=== PATIENT | female | born 1995 | race African-American/Black ===

== ENCOUNTER 2016-12-19 12:58 | Emergency (ER) | payer OTHER ==
--- NOTE | 2016-12-19 13:59 | ERRECORD ---
[facility] EMERGENCY RECORD HPI COUGH (13:14 SHAN) CHIEF COMPLAINT: Patient presents for evaluation of cough, Patient presents for evaluation of and sore throat. HISTORIAN: History provided by patient, two days of cough with yellow green sputum, sore throat, worsening; denies any chance of being . LOCATION: No localizing symptoms. SEVERITY: Maximum severity of symptoms moderate, Currently symptoms are moderate. TIME COURSE: Gradual onset of symptoms, Symptoms are worsening. ROS CONSTITUTIONAL: Negative constitutional review of systems. (13:16 SHAN) EYES: Negative eye review of systems. (13:16 SHAN) ENT: Historian reports rhinorrhea, reports sore throat. (13:16 SHAN) CARDIOVASCULAR: Negative cardiovascular review of systems. (13:16 SHAN) RESPIRATORY: Historian reports cough. (13:16 SHAN) GI: Negative gastrointestinal review of systems. (13:16 SHAN) MUSCULOSKELETAL: Negative musculoskeletal review of systems. (13:18 SHAN) SKIN: Negative skin review of systems. (13:16 SHAN) NEUROLOGIC: Negative neurologic review of systems. (13:16 SHAN) ENDOCRINE: Negative endocrine review of systems. (13:16 SHAN) NOTES: All systems reviewed, negative except as described above. (13:16 SHAN) PAST MEDICAL HISTORY (13:04 MSPE) MEDICAL HISTORY: Flu vaccine up to date, Tetanus immunization up to date, Past medical history includes pulmonary disease, asthma. FEMALE SURGICAL HISTORY: Surgical history of section, Date of surgery 10-29-16. PSYCHIATRIC HISTORY: No previous psychiatric history. SOCIAL HISTORY: Patient drinks socially, rarely, Patient denies drug use, Patient has no smoking history. FAMILY HISTORY: No known family hisotry, Family history includes diabetes, maternal grandmother. KNOWN ALLERGIES No Known Drug Allergies CURRENT MEDICATIONS (13:03 MSPE) None VITAL SIGNS (13:01 MSPE) VITAL SIGNS: BP: 147/73, Pulse: 67, Resp: 18, Temp: 98.5 (Oral), Pain: 5, O2 sat: 96 on Room Air, Time: 12/19/2016 13:01. &a-1R&a+25V*p+0X*p2617D*c202B*c15G*c2P*p-0X&a-25V&a+1R Name: Beatriz Keith Joel : 1995 F21 MedRec: [id number] AcctNum: [id number] Prepared: ThuDec 19, 2016 13:55 by Interface Page 1 of 2 pMD [facility] EMERGENCY RECORD PHYSICAL EXAM CONSTITUTIONAL: Patient afebrile, Pulse normal, Blood pressure normal, Respiratory rate normal, Normal pulse oximetry, Patient appears non toxic, Patient appears pain free, Patient alert and oriented to person, place and time. (13:16 SHAN) HEAD: Head exam included findings of head atraumatic, normocephalic. (13:16 SHAN) EYES: Eye exam included findings of eyelids normal to inspection, Pupils equally round and reactive to light, Extraocular muscles intact. (13:16 SHAN) ENT: nasal congestion. (13:16 SHAN) NECK: Neck exam normal. (13:16 SHAN) RESPIRATORY CHEST: Mild ronchi. (13:16 SHAN) CARDIOVASCULAR: Cardiovascular exam included findings of heart rate regular rate and rhythm, Heart sounds normal. (13:18 SHAN) ABDOMEN FEMALE: Abdominal exam included findings of abdomen nontender, Bowel sounds normal. (13:16 SHAN) ABDOMEN MALE: Abdominal exam included findings of abdomen nontender, Bowel sounds normal. (13:18 SHAN) BACK: Back exam normal. (13:16 SHAN) UPPER EXTREMITY: Upper extremity exam included findings of inspection normal, Range of motion normal. (13:16 SHAN) NEURO: Neuro exam normal. (13:16 SHAN) SKIN: Skin exam normal. (13:16 SHAN) DOCTOR NOTES (13:49 SHAN) TEXT: strep and flu negative; green sputum. Discussed options and medication (cipro) concerns and will treat. Not and not breast feeding. DATA REVIEWED: Lab data reviewed. PROBLEM LIST No recorded problems DIAGNOSIS (13:51 SHAN) FINAL: PRIMARY: Acute bronchitis. PRESCRIPTION (13:51 SHAN) Cipro tablet: TABLET : 500 mg : ORAL : Quantity: 1 Unit: tab(s) Route: ORAL Schedule: 2 times a day (with meals) Dispense: 20 Unit: tab(s) May substitute. Refills: No Refills . NOTES: No Refills. DISPOSITION (13:51 SHAN) PATIENT: Disposition Type: Discharge, Disposition: *Discharge Home. Meza: VIGNESH=TREV Goldman, Roseann CONTRERAS=MD Tri, Ravi &a-1R&a+25V*p+0X*c3019Z*c202B*c15G*c2P*p-0X&a-25V&a+1R Name: Beatriz Keith Joel : 1995 F21 MedRec: [id number] AcctNum: [id number] Prepared: ThuDec 19, 2016 13:55 by Interface Page 2 of 2 pMD MTDD
--- NOTE | 2016-12-19 14:02 | ERRECORD ---
[facility] EMERGENCY RECORD HPI COUGH (13:14 SHAN) CHIEF COMPLAINT: Patient presents for evaluation of cough, Patient presents for evaluation of and sore throat. HISTORIAN: History provided by patient, two days of cough with yellow green sputum, sore throat, worsening; denies any chance of being . LOCATION: No localizing symptoms. SEVERITY: Maximum severity of symptoms moderate, Currently symptoms are moderate. TIME COURSE: Gradual onset of symptoms, Symptoms are worsening. ROS CONSTITUTIONAL: Negative constitutional review of systems. (13:16 SHAN) EYES: Negative eye review of systems. (13:16 SHAN) ENT: Historian reports rhinorrhea, reports sore throat. (13:16 SHAN) CARDIOVASCULAR: Negative cardiovascular review of systems. (13:16 SHAN) RESPIRATORY: Historian reports cough. (13:16 SHAN) GI: Negative gastrointestinal review of systems. (13:16 SHAN) MUSCULOSKELETAL: Negative musculoskeletal review of systems. (13:18 SHAN) SKIN: Negative skin review of systems. (13:16 SHAN) NEUROLOGIC: Negative neurologic review of systems. (13:16 SHAN) ENDOCRINE: Negative endocrine review of systems. (13:16 SHAN) NOTES: All systems reviewed, negative except as described above. (13:16 SHAN) PAST MEDICAL HISTORY (13:04 MSPE) MEDICAL HISTORY: Flu vaccine up to date, Tetanus immunization up to date, Past medical history includes pulmonary disease, asthma. FEMALE SURGICAL HISTORY: Surgical history of section, Date of surgery 10-29-16. PSYCHIATRIC HISTORY: No previous psychiatric history. SOCIAL HISTORY: Patient drinks socially, rarely, Patient denies drug use, Patient has no smoking history. FAMILY HISTORY: No known family hisotry, Family history includes diabetes, maternal grandmother. KNOWN ALLERGIES No Known Drug Allergies CURRENT MEDICATIONS (13:03 MSPE) None VITAL SIGNS (13:01 MSPE) VITAL SIGNS: BP: 147/73, Pulse: 67, Resp: 18, Temp: 98.5 (Oral), Pain: 5, O2 sat: 96 on Room Air, Time: 12/19/2016 13:01. &a-1R&a+25V*p+0X*k3580L*c202B*c15G*c2P*p-0X&a-25V&a+1R Name: Beatriz Keith Joel : 1995 F21 MedRec: [id number] AcctNum: [id number] Prepared: ThuDec 19, 2016 14:02 by Interface Page 1 of 3 pMD [facility] EMERGENCY RECORD PHYSICAL EXAM CONSTITUTIONAL: Patient afebrile, Pulse normal, Blood pressure normal, Respiratory rate normal, Normal pulse oximetry, Patient appears non toxic, Patient appears pain free, Patient alert and oriented to person, place and time. (13:16 SHAN) HEAD: Head exam included findings of head atraumatic, normocephalic. (13:16 SHAN) EYES: Eye exam included findings of eyelids normal to inspection, Pupils equally round and reactive to light, Extraocular muscles intact. (13:16 SHAN) ENT: nasal congestion. (13:16 SHAN) NECK: Neck exam normal. (13:16 SHAN) RESPIRATORY CHEST: Mild ronchi. (13:16 SHAN) CARDIOVASCULAR: Cardiovascular exam included findings of heart rate regular rate and rhythm, Heart sounds normal. (13:18 SHAN) ABDOMEN FEMALE: Abdominal exam included findings of abdomen nontender, Bowel sounds normal. (13:16 SHAN) ABDOMEN MALE: Abdominal exam included findings of abdomen nontender, Bowel sounds normal. (13:18 SHAN) BACK: Back exam normal. (13:16 SHAN) UPPER EXTREMITY: Upper extremity exam included findings of inspection normal, Range of motion normal. (13:16 SHAN) NEURO: Neuro exam normal. (13:16 SHAN) SKIN: Skin exam normal. (13:16 SHAN) DOCTOR NOTES (13:49 SHAN) TEXT: strep and flu negative; green sputum. Discussed options and medication (cipro) concerns and will treat. Not and not breast feeding. DATA REVIEWED: Lab data reviewed. PROBLEM LIST No recorded problems DIAGNOSIS (13:51 SHAN) FINAL: PRIMARY: Acute bronchitis. PRESCRIPTION (13:51 SHAN) Cipro tablet: TABLET : 500 mg : ORAL : Quantity: 1 Unit: tab(s) Route: ORAL Schedule: 2 times a day (with meals) Dispense: 20 Unit: tab(s) May substitute. Refills: No Refills . NOTES: No Refills. DISPOSITION PATIENT: Disposition Type: Discharge, Disposition: *Discharge Home. (13:51 SHAN) Patient left the department. (13:56 MCBE) Meza: &a-1R&a+25V*p+0X*w8364Z*c202B*c15G*c2P*p-0X&a-25V&a+1R Name: Beatriz Keith : 1995 F21 MedRec: [id number] AcctNum: [id number] Prepared: ThuDec 19, 2016 14:02 by Interface Page 2 of 3 pMD [facility] EMERGENCY RECORD MCBE=Yamilet Hankins=TREV Goldman, Roseann CONTRERAS=MD Tri, Ravi &a-1R&a+25V*p+0X*i1698D*c202B*c15G*c2P*p-0X&a-25V&a+1R Name: Beatriz Keith : 1995 F21 MedRec: [id number] AcctNum: [id number] Prepared: ThuDec 19, 2016 14:02 by Interface Page 3 of 3 pMD MTDD
--- NOTE | 2016-12-19 14:04 | PICIS ---
[facility] EMERGENCY RECORD TRIAGE (13:02 MSPE) TRIAGE NOTES: productive cough, nasal congestion, sore throat for past two days. (13:02 MSPE) PATIENT: NAME: Beatriz Keith, AGE: 21, GENDER: female, : Thu1995, TIME OF GREET: ThuDec 19, 2016 12:58, PREFERRED LANGUAGE: Tajik, ETHNICITY: Not or , ECODE BILLING MAP: [facility], SSN: [id number], Zip Code: [address], KG WEIGHT: 78.93, PHONE: , , , PERSON ID: [id number], PCP: Avery Taylor /Nicolette. (13:02 MSPE) COMPLAINT: THROAT PAIN. (13:02 MSPE) ADMISSION: URGENCY: 4 Non Urgent, ADMISSION SOURCE: Home, TRANSPORT: CAR, BED: TRIAGE. (13:02 MSPE) LMP: Last menstrual period: 11/28/2016. (13:04 MSPE) TREATMENTS IN PROGRESS: Treatments given Prehospital: none today. (13:04 MSPE) PROVIDERS: TRIAGE NURSE: Roseann Goldman RN. (13:02 MSPE) VITAL SIGNS: BP 147/73, Pulse 67, Resp 18, Temp 98.5, (Oral), Pain 5, O2 Sat 96, on Room Air, Time 12/19/2016 13:01. (13:01 MSPE) PREVIOUS VISIT ALLERGIES: No Known Drug Allergies. (13:02 MSPE) No Known Drug Allergies. (13:04 MSPE) KNOWN ALLERGIES No Known Drug Allergies CURRENT MEDICATIONS (13:03 MSPE) None VITAL SIGNS (13:01 MSPE) VITAL SIGNS: BP: 147/73, Pulse: 67, Resp: 18, Temp: 98.5 (Oral), Pain: 5, O2 sat: 96 on Room Air, Time: 12/19/2016 13:01. NURSING ASSESSMENT: ENT (13:05 MSPE) CONSTITUTIONAL: Patient arrives ambulatory, Gait steady, History obtained from patient, Patient appears comfortable, Patient cooperative, Patient alert, Oriented to person, place and time, Skin warm, Skin dry. PAIN: sore throat, Onset of pain 2 days ago. ENT: Uvula normal, Able to swallow, Speech normal. RESPIRATORY/CHEST: Breath sounds clear, Respiratory assessment findings include respiratory effort easy, Respirations regular, Associated with cough, productive of, green sputum, Notes: sts has been around nephew who has been ill with cold sx. NURSING PROCEDURE: DISCHARGE NOTE (13:57 MCBE) DISCHARGE: Patient discharged to home, ambulating without assistance, driving self, accompanied by other family member, Summary of Care printed/ provided, Discharge instructions given to patient, Simple or moderate discharge teaching performed, by YAMILET KARIMI, &a-1R&a+25V*p+0X*o7506X*c202B*c15G*c2P*p-0X&a-25V&a+1R Name: Beatriz Keith : 1995 F21 MedRec: [id number] AcctNum: [id number] Prepared: ThuDec 19, 2016 14:07 by Interface Page 1 of 4 pMD [facility] EMERGENCY RECORD EXPLAINED DISCHARGE INSTRUCTIONS. INSTRUCTED TO RETURN IF S/S WORSEN. INSTRUCTED TO COMPLETE ALL ANITBIOTICS. INFORMED PATIENT PRESCRIPTION CAN BE FILLED AT ANY PHARMACY, Prescriptions given and instructions on side effects given, Name of prescription(s) given: DAGO, Paulino person(s) verbalized understanding of discharge instructions and follow-up care, Patient treated and evaluated by physician. BELONGINGS: Belongings and valuables with patient upon arrival to the Emergency Department include:, Belongings and valuables with patient at time of discharge include:, jacket, pants, shirt, shoes, cellular phone, Notes: IN CARRIER WITH PINK BLANKET OVER THE FRONT. ALL BABY ITEMS WITH PATIENT WHEN DISCHARGED. ORDER DETAILS Order Name: Influenza A&B Ag Screen, Status: Active, Time: 13:14 12/19/2016, User: BEN, - Ordered for: MD Bartlett Stanley, - Entered by: MD Bartlett Stanley - Mike Dec 19, 2016 13:14, - Quantity: 1, Order Name: Strep Group A Screen, Status: Active, Time: 13:14 12/19/2016, User: BEN, - Ordered for: MD Bartlett Stanley, - Entered by: MD Bartlett Stanley - ThuDec 19, 2016 13:14, - Quantity: 1. HPI COUGH (13:14 SHAN) CHIEF COMPLAINT: Patient presents for evaluation of cough, Patient presents for evaluation of and sore throat. HISTORIAN: History provided by patient, two days of cough with yellow green sputum, sore throat, worsening; denies any chance of being . LOCATION: No localizing symptoms. SEVERITY: Maximum severity of symptoms moderate, Currently symptoms are moderate. TIME COURSE: Gradual onset of symptoms, Symptoms are worsening. ROS CONSTITUTIONAL: Negative constitutional review of systems. (13:16 SHAN) EYES: Negative eye review of systems. (13:16 SHAN) ENT: Historian reports rhinorrhea, reports sore throat. (13:16 SHAN) CARDIOVASCULAR: Negative cardiovascular review of systems. (13:16 SHAN) RESPIRATORY: Historian reports cough. (13:16 SHAN) GI: Negative gastrointestinal review of systems. (13:16 SHAN) MUSCULOSKELETAL: Negative musculoskeletal review of systems. (13:18 SHAN) SKIN: Negative skin review of systems. (13:16 SHAN) &a-1R&a+25V*p+0X*c2834R*c202B*c15G*c2P*p-0X&a-25V&a+1R Name: Beatriz Keith : 1995 F21 MedRec: [id number] AcctNum: [id number] Prepared: ThuDec 19, 2016 14:07 by Interface Page 2 of 4 pMD [facility] EMERGENCY RECORD NEUROLOGIC: Negative neurologic review of systems. (13:16 SHAN) ENDOCRINE: Negative endocrine review of systems. (13:16 SHAN) NOTES: All systems reviewed, negative except as described above. (13:16 SHAN) PAST MEDICAL HISTORY (13:04 MSPE) MEDICAL HISTORY: Flu vaccine up to date, Tetanus immunization up to date, Past medical history includes pulmonary disease, asthma. FEMALE SURGICAL HISTORY: Surgical history of section, Date of surgery 10-29-16. PSYCHIATRIC HISTORY: No previous psychiatric history. SOCIAL HISTORY: Patient drinks socially, rarely, Patient denies drug use, Patient has no smoking history. FAMILY HISTORY: No known family hisotry, Family history includes diabetes, maternal grandmother. PHYSICAL EXAM CONSTITUTIONAL: Patient afebrile, Pulse normal, Blood pressure normal, Respiratory rate normal, Normal pulse oximetry, Patient appears non toxic, Patient appears pain free, Patient alert and oriented to person, place and time. (13:16 SHAN) HEAD: Head exam included findings of head atraumatic, normocephalic. (13:16 SHAN) EYES: Eye exam included findings of eyelids normal to inspection, Pupils equally round and reactive to light, Extraocular muscles intact. (13:16 SHAN) ENT: nasal congestion. (13:16 SHAN) NECK: Neck exam normal. (13:16 SHAN) RESPIRATORY CHEST: Mild ronchi. (13:16 SHAN) CARDIOVASCULAR: Cardiovascular exam included findings of heart rate regular rate and rhythm, Heart sounds normal. (13:18 SHAN) ABDOMEN FEMALE: Abdominal exam included findings of abdomen nontender, Bowel sounds normal. (13:16 SHAN) ABDOMEN MALE: Abdominal exam included findings of abdomen nontender, Bowel sounds normal. (13:18 SHAN) BACK: Back exam normal. (13:16 SHAN) UPPER EXTREMITY: Upper extremity exam included findings of inspection normal, Range of motion normal. (13:16 SHAN) NEURO: Neuro exam normal. (13:16 SHAN) SKIN: Skin exam normal. (13:16 SHAN) EVENTS TRANSFER: Triage to Emergency Triage. (ThuDec 19, 2016 13:02 MSPE) Emergency Triage to Emergency Room -03. (13:04 MSPE) Removed from Emergency Emergency Room -03. (13:56 MCBE) DOCTOR NOTES (13:49 SHAN) TEXT: strep and flu negative; green sputum. Discussed &a-1R&a+25V*p+0X*q9498C*c202B*c15G*c2P*p-0X&a-25V&a+1R Name: Beatriz Keith Joel : 1995 F21 MedRec: [id number] AcctNum: [id number] Prepared: ThuDec 19, 2016 14:07 by Interface Page 3 of 4 pMD [facility] EMERGENCY RECORD options and medication (cipro) concerns and will treat. Not and not breast feeding. DATA REVIEWED: Lab data reviewed. PROBLEM LIST No recorded problems DIAGNOSIS (13:51 SHAN) FINAL: PRIMARY: Acute bronchitis. DISPOSITION PATIENT: Disposition Type: Discharge, Disposition: *Discharge Home. (13:51 SHAN) Patient left the department. (13:56 MCBE) INSTRUCTION (13:53 SHAN) DISCHARGE: BRONCHITIS, ABX [place] (ADULT). FOLLOWUP: [facility], /[facility], [address] [facility], [place] [address], . SPECIAL: 1. antibiotic as directed 2. rest and other otc meds as needed 3. take in extra fluids 4. return if condition worsens 5. followup with a regular provider in about a week unless well. PRESCRIPTION (13:51 BEN) Cipro tablet: TABLET : 500 mg : ORAL : Quantity: 1 Unit: tab(s) Route: ORAL Schedule: 2 times a day (with meals) Dispense: 20 Unit: tab(s) May substitute. Refills: No Refills . NOTES: No Refills. IMAGING (13:58 [facility]) *DISCHARGE INSTRUCTIONS RECEIPT: Image captured from scanner. *SUPPLY CHARGE SHEET: Image captured from scanner. ADMIN (13:54 BEN) DIGITAL SIGNATURE: MD Tri, Ravi. Meza: TE=Yamilet Hankins MSPE=TREV Goldman, Roseann CONTRERAS=MD Tri, Ravi &a-1R&a+25V*p+0X*n8453F*c202B*c15G*c2P*p-0X&a-25V&a+1R Name: Beatriz Keith Joel : 1995 F21 MedRec: [id number] AcctNum: [id number] Prepared: ThuDec 19, 2016 14:07 by Interface Page 4 of 4 pMD MTDD
== END 2016-12-19 13:56 | disposition home or self-care (01) ==
LOC: NAV ERS 12:58
DX: J20.9 Acute bronchitis, unspecified (principal); J45.909 Unspecified asthma, uncomplicated
CPT/HCPCS: 87430; 99283

== ENCOUNTER 2017-04-03 09:12 | Emergency (ER) | payer OTHER ==
--- NOTE | 2017-04-03 10:01 | RAD ---
RADIOGRAPH CHEST 2 VIEWS: HISTORY: A 21-year-old female with an acute productive cough and dyspnea. FINDINGS: There is no air space density, pulmonary edema, pleural effusion, pneumothorax, or cardiomegaly. Th ere are calcified left hilar lymph nodes. IMPRESSION: 1. No acute cardiopulmonary findings. 2. Evidence for old (inactive) left hilar granulomatous disease. jn [] POS: [facility]
== END 2017-04-03 10:17 | disposition home or self-care (01) ==
LOC: NAV ERS 09:12
DX: J06.9 Acute upper respiratory infection, unspecified (principal); J45.909 Unspecified asthma, uncomplicated
CPT/HCPCS: 71020

== ENCOUNTER 2017-05-08 15:40 | Emergency (ER) | payer OTHER ==
[2017-05-08] MEDS ORDERED: Ondansetron ODT 4 MG TAB ONE (15:46)
[2017-05-08] MEDS ORDERED: Fentanyl 100 MCG/2 ML VIAL ONE (16:03)
[2017-05-08] MEDS ORDERED: Ketorolac Tromethamine 30 MG/ML VIAL ONE (16:03)
[2017-05-08] MEDS ORDERED: Famotidine/PF 20 mg/2ml Vial ONE (16:03)
[2017-05-08 16:13] LABS: #Basophils 0.2 thou/uL (0.0-0.2); #Eosinphils 0.1 thou/uL (0.0-0.7); #Lymphocytes 3.4 thou/uL (1.20-3.40); #Monocytes 0.5 thou/uL (0.11-0.59); #Neutrophils 2.9 thou/uL (1.40-6.50); %Basophils 2.2 % (0.0-1.0); %Lymphocytes 47.9 % (21.0-51.0); %Monocytes 7.5 % (0.0-10.0); %Neutrophils 40.4 % (42.0-75.0); Hemoglobin 13.3 g/dL (12.0-16.0); Mean Corpuscular HGB CONC 31.5 g/dL (32.0-36.0); Mean Corpuscular Hemoglobin 26.5 pg (27.0-31.0); Mean Corpuscular Volume 84.4 fl (81.0-99.0); Mean Platelet Volume 6.2 fL (7.4-10.4); Platelet Count 283 thou/uL (130-400); RBC Distribution Width 12.1 % (11.5-14.5); Red Blood Cell (RBC) Count 5.02 mill/uL (4.20-5.40); White Blood Cell (WBC) Count 7.1 thou/uL (4.8-10.8)
[2017-05-08 16:14] LABS: Bilirubin Negative (Negative); Blood, Urine Negative (Negative); Glucose, Urine (Dipstick) Negative (Negative); Leukocyte Negative (Negative); Nitrite Negative (Negative); Protein, Urine (Dipstick) Negative (Neg-Trace); Specific Gravity, Urine 1.025 (1.005-1.030); pH, Urine 5.5 (5.0-9.0)
[2017-05-08 16:18] LABS: Clarity SL HAZY (Clear)
[2017-05-08 16:19] LABS: Pregnancy Test - Urine (BHCG) Negative (NEGATIVE)
[2017-05-08] MEDS ORDERED: diphenhydrAMINE HCl 50 MG/ML 1 ML VIAL ONE (16:20)
[2017-05-08 16:23] LABS: Pregu Control Background? CLEAR/WHITE (CLR/WHITE); Pregu Control Bar Appear? YES (CONTROL BAR); Specific Gravity 1.025 (1.002-1.036)
[2017-05-08 16:27] LABS: ALT (SGPT) 52 U/L (8-55); AST (SGOT) 97 U/L (5-34); Albumin 4.2 g/dL (3.5-5.0); Alkaline Phosphatase 60 U/L (40-150); Anion Gap 14 mmol/L (10-20); BUN (Urea Nitrogen) 9 mg/dL (7.0-18.7); Bilirubin, Total 0.5 mg/dL (0.2-1.2); Calc. Creatinine Clearance 0 mL/min (70-130); Calcium 8.8 mg/dL (7.8-10.44); Carbon Dioxide 23 mmol/L (22-29); Chloride 107 mmol/L (98-107); Estimated GFR-MDRD Greater than 90; Globulin 3.4 g/dL (2.4-3.5); Glucose 102 mg/dL (70-105); Potassium 3.1 mmol/L (3.5-5.1); Protein, Total 7.6 g/dL (6.0-8.3); Sodium 141 mmol/L (136-145)
[2017-05-08] MEDS ORDERED: Potassium Chloride 20 MEQ TAB ONE (16:43)
== END 2017-05-08 16:54 | disposition home or self-care (01) ==
LOC: NAV ERS 15:40
DX: R10.30 Lower abdominal pain, unspecified (principal); R11.2 Nausea with vomiting, unspecified; J45.909 Unspecified asthma, uncomplicated
CPT/HCPCS: 80053; 81003; 81025; 85025; 96374; 96375; J1200; J1885; J3010; Q0162; S0028

== ENCOUNTER 2017-05-10 23:29 | Emergency (ER) | payer OTHER ==
[~2017-05-10 23:29] MED LIST: Iopamidol 370 76% 100 ML VIAL ONE
[2017-05-10] MEDS ORDERED: Ondansetron ODT 4 MG TAB ONE ×2 (23:43→23:59)
[2017-05-10] MEDS ORDERED: Fentanyl 100 MCG/2 ML VIAL ONE (23:58)
[2017-05-10] MEDS ORDERED: Sodium Chloride 0.9% 1,000 ML ONE (23:59)
[2017-05-10] MEDS ORDERED: Ketorolac Tromethamine 30 MG/ML VIAL ONE (23:59)
[2017-05-11 00:06] LABS: #Basophils 0.1 thou/uL (0.0-0.2); #Eosinphils 0.2 thou/uL (0.0-0.7); #Lymphocytes 4.1 thou/uL (1.20-3.40); #Monocytes 0.5 thou/uL (0.11-0.59); #Neutrophils 3.5 thou/uL (1.40-6.50); %Basophils 1.6 % (0.0-1.0); %Eosinophils 2.8 % (0.0-10.0); %Lymphocytes 48.1 % (21.0-51.0); %Monocytes 6.3 % (0.0-10.0); %Neutrophils 41.2 % (42.0-75.0); Hemoglobin 13.6 g/dL (12.0-16.0); Mean Corpuscular HGB CONC 32.3 g/dL (32.0-36.0); Mean Corpuscular Hemoglobin 27.2 pg (27.0-31.0); Mean Corpuscular Volume 84.2 fl (81.0-99.0); Mean Platelet Volume 6.6 fL (7.4-10.4); Platelet Count 303 thou/uL (130-400); RBC Distribution Width 12.4 % (11.5-14.5); White Blood Cell (WBC) Count 8.6 thou/uL (4.8-10.8)
[2017-05-11 00:24] LABS: Pregnancy Test - Urine (BHCG) Negative (NEGATIVE); Pregu Control Background? CLEAR/WHITE (CLR/WHITE); Pregu Control Bar Appear? YES (CONTROL BAR); Specific Gravity 1.026 (1.002-1.036)
[2017-05-11 00:26] LABS: ALT (SGPT) 204 U/L (8-55); AST (SGOT) 54 U/L (5-34); Albumin 4.5 g/dL (3.5-5.0); Alkaline Phosphatase 92 U/L (40-150); Anion Gap 15 mmol/L (10-20); BUN (Urea Nitrogen) 16 mg/dL (7.0-18.7); Bilirubin, Total 0.6 mg/dL (0.2-1.2); Calc. Creatinine Clearance 0 mL/min (70-130); Calcium 9.2 mg/dL (7.8-10.44); Carbon Dioxide 24 mmol/L (22-29); Chloride 103 mmol/L (98-107); Estimated GFR-MDRD 86; Globulin 3.4 g/dL (2.4-3.5); Glucose 80 mg/dL (70-105); Potassium 3.3 mmol/L (3.5-5.1); Protein, Total 7.9 g/dL (6.0-8.3); Sodium 139 mmol/L (136-145)
--- NOTE | 2017-05-11 08:47 | CT ---
PRELIMINARY REPORT/[facility]/EMERGENCY AFTER HOURS PROCEDURE: EXAM: CT Abdomen and Pelvis With Intravenous Contrast CLINICAL HISTORY: 21 years old, female; Pain; Abdominal pain; Acute; Prior surgery; Surgery date: 6+ months; Surgery t ype: Csection; Patient HX: Ruq pain x 1 hour TECHNIQUE: Axial computed tomography images of the abdomen and pelvis with intravenous contrast. This CT exam w as performed using one or more of the following dose reduction techniques: automated exposure contro l, adjustment of the mA and/or kV according to patient size, and/or use of iterative reconstruction technique. Coronal and sagittal reformatted images were created and reviewed. CONTRAST: 95 mL of ISOVUE 370 administered intravenously. EXAM DATE/TIME: 05/11/2017 12:33 AM COMPARISON: No relevant prior studies available. FINDINGS: Lower thorax: No acute findings. ABDOMEN: Liver: unremarkable for age Gallbladder and bile ducts: No gallbladder distention. No CBD dilation. Pancreas: unremarkable for age Spleen: unremarkable Adrenals: unremarkable Kidneys and ureters: unremarkable for age No hydronephrosis. Stomach and bowel: Lack of oral contrast compromises evaluation of the bowel. No bowel obstruction. Stool throughout the colon and rectum Appendix: Appendix normal PELVIS: Bladder: urinary bladder empty. Reproductive: Limited evaluation of the uterus and ovaries ABDOMEN and PELVIS: Intraperitoneal space: No ascites. No pneumoperitoneum. Bones/joints: unremarkable for age. Soft tissues: See other sections of this report. Vasculature: Left pelvic calcification probably phlebolith. No abdominal aortic aneurysm Lymph nodes: No bulky adenopathy. IMPRESSION: - Evidence of constipation. - Appendix normal Thank you for allowing us to participate in the care of your patient. Dictated and Authenticated by: Valeriano Luevano MD 05/11/2017 1:02 AM Central Time ([place] \T\ [place]) FINAL REPORT CT ABDOMEN AND PELVIS WITH IV CONTRAST: Liver, spleen, pancreas, and kidneys unremarkable. Unopacified bowel limits the exam; however, the appendix does not appear enlarged or inflamed. Stool is seen throughout the colon. No evidence of acute process. I am in agreement with the preliminary report. POS: [facility]
== END 2017-05-11 01:40 | disposition home or self-care (01) ==
LOC: NAV ERS 23:29
DX: K21.9 Gastro-esophageal reflux disease without esophagitis (principal); J45.909 Unspecified asthma, uncomplicated
CPT/HCPCS: 36415; 74177; 80053; 81025; 82150; 85025; 96361; 96374; 96375; J1885; J3010; J7050; Q0162

== ENCOUNTER 2017-08-07 06:06 | Emergency (ER) | payer OTHER, SELFPAY | END 2017-08-07 07:20 | disposition home or self-care (01) | LOC: NAV ERS 06:06 | DX: G56.93 Unspecified mononeuropathy of bilateral upper limbs (principal); J45.909 Unspecified asthma, uncomplicated | CPT/HCPCS: 99283 ==

== ENCOUNTER 2017-09-30 09:38 | Emergency (ER) | payer SELFPAY ==
[2017-09-30] MEDS ORDERED: Azithromycin 250 MG TAB ONE (09:57)
[2017-09-30] MEDS ORDERED: Dexamethasone 20 MG/5 ML VIAL ONE (09:57)
== END 2017-09-30 10:18 | disposition home or self-care (01) ==
LOC: NAV ERS 09:38
DX: R05 Cough (principal); J45.909 Unspecified asthma, uncomplicated
CPT/HCPCS: 96372; J1100; J7620

== ENCOUNTER 2017-11-23 00:22 | Emergency (ER) | payer OTHER, SELFPAY ==
[2017-11-23] MEDS ORDERED: Ibuprofen 800 MG TAB ONE (01:04)
== END 2017-11-23 01:20 | disposition home or self-care (01) ==
LOC: NAV ERS 00:22
DX: J06.9 Acute upper respiratory infection, unspecified (principal); J45.909 Unspecified asthma, uncomplicated; Z79.899 Other long term (current) drug therapy
CPT/HCPCS: 87081; 87430; 99283

== ENCOUNTER 2017-12-13 17:41 | Emergency (ER) | payer OTHER | END 2017-12-13 18:14 | disposition home or self-care (01) | LOC: NAV ERS 17:41 | DX: B34.9 Viral infection, unspecified (principal); J45.909 Unspecified asthma, uncomplicated; Z79.899 Other long term (current) drug therapy | CPT/HCPCS: 99283 ==

== ENCOUNTER 2018-01-05 14:54 | Emergency (ER) | payer OTHER ==
[2018-01-05] MEDS ORDERED: Acetaminophen 500 MG TAB ONE (15:22)
--- NOTE | 2018-01-05 15:39 | RAD ---
CHEST 2 VIEWS: Date: 01/05/18 HISTORY: Cough. COMPARISON: 04/03/17. FINDINGS: Cardiac silhouette and pulmonary vasculature are unremarkable. Mediastinum is midline. There is no co nfluent air space consolidation, pneumothorax, or pleural fluid evident. IMPRESSION: No active cardiopulmonary abnormalities are demonstrated. POS: [facility]
== END 2018-01-05 16:00 | disposition home or self-care (01) ==
LOC: NAV ERS 14:54
DX: J20.9 Acute bronchitis, unspecified (principal); J45.909 Unspecified asthma, uncomplicated
CPT/HCPCS: 71046

== ENCOUNTER 2018-09-28 10:19 | Emergency (ER) | payer OTHER | END 2018-09-28 11:57 | disposition home or self-care (01) | LOC: NAV ERS 10:19 | DX: B34.9 Viral infection, unspecified (principal); Z43.6 Encounter for attention to other artificial openings of urinary tract; J45.909 Unspecified asthma, uncomplicated; Z87.891 Personal history of nicotine dependence; Z79.899 Other long term (current) drug therapy | CPT/HCPCS: 87804; 99283 ==

== ENCOUNTER 2018-10-18 15:21 | Emergency (ER) | payer OTHER ==
[2018-10-18 16:37] LABS: Bilirubin Negative (Negative); Blood, Urine Negative (Negative); Clarity Clear (Clear); Glucose, Urine (Dipstick) Negative (Negative); Leukocyte Negative (Negative); Nitrite Negative (Negative); Protein, Urine (Dipstick) Trace mg/dL (Neg-Trace); Specific Gravity, Urine 1.015 (1.005-1.030); Urobilinogen > or = 8.0 mg/dL (0.2-1.0); pH, Urine 8.5 (5.0-9.0)
[2018-10-18 16:44] LABS: Pregnancy Test - Urine (BHCG) Negative (Negative); Pregu Control Background? CLEAR/WHITE (CLR/WHITE); Pregu Control Bar Appear? YES (CONTROL BAR); Specific Gravity 1.015 (1.002-1.036)
== END 2018-10-18 17:00 | disposition home or self-care (01) ==
LOC: NAV ERS 15:21
DX: J06.9 Acute upper respiratory infection, unspecified (principal); J45.909 Unspecified asthma, uncomplicated; Z87.891 Personal history of nicotine dependence
CPT/HCPCS: 81003; 81025; 87081; 87430; 87804; 99283

== ENCOUNTER 2018-10-26 12:34 | Emergency (ER) | payer OTHER | END 2018-10-26 13:35 | disposition home or self-care (01) | LOC: NAV ERS 12:34 | DX: J06.9 Acute upper respiratory infection, unspecified (principal); J45.909 Unspecified asthma, uncomplicated; Z87.891 Personal history of nicotine dependence | CPT/HCPCS: 99282 ==

== ENCOUNTER 2019-02-08 08:31 | Emergency (ER) | payer OTHER ==
[2019-02-08 08:59] LABS: Bilirubin Negative (Negative); Blood, Urine Trace (Negative); Clarity Clear (Clear); Glucose, Urine (Dipstick) Negative (Negative); Leukocyte Small (Negative); Nitrite Negative (Negative); Protein, Urine (Dipstick) Negative (Neg-Trace); pH, Urine 6.5 (5.0-9.0)
[2019-02-08 09:06] LABS: Pregnancy Test - Urine (BHCG) Negative (Negative)
[2019-02-08 09:07] LABS: Pregu Control Background? CLEAR/WHITE (CLR/WHITE); Pregu Control Bar Appear? YES (CONTROL BAR)
[2019-02-08 09:09] LABS: RBC/HPF 0-3 HPF (0-3); WBC/HPF 21-50 HPF (0-3)
[2019-02-08 09:10] LABS: Bacteria/HPF 1+ HPF (None Seen); Squamous Epithelial 0-3 HPF (0-3)
== END 2019-02-08 09:17 | disposition home or self-care (01) ==
LOC: NAV ERS 08:31
DX: N30.00 Acute cystitis without hematuria (principal); J45.909 Unspecified asthma, uncomplicated; Z87.891 Personal history of nicotine dependence
CPT/HCPCS: 81003; 81015; 81025; 99283

== ENCOUNTER 2019-03-07 13:21 | Emergency (ER) | payer OTHER ==
[2019-03-07] MEDS ORDERED: Ondansetron ODT 4 MG TAB ONE (13:42)
== END 2019-03-07 13:47 | disposition home or self-care (01) ==
LOC: NAV ERS 13:21
DX: K52.9 Noninfective gastroenteritis and colitis, unspecified (principal); J45.909 Unspecified asthma, uncomplicated; Z87.891 Personal history of nicotine dependence
CPT/HCPCS: 99283; Q0162

== ENCOUNTER 2019-08-29 09:35 | Emergency (ER) | payer OTHER, SELFPAY ==
[2019-08-29] MEDS ORDERED: Acetaminophen 500 MG TAB ONE (10:15)
[2019-08-29] MEDS ORDERED: Ketorolac Tromethamine 60 MG/2 ML VIAL ONE (10:15)
== END 2019-08-29 10:45 | disposition home or self-care (01) ==
LOC: NAV ERS 09:35
DX: M54.5 Low back pain (principal); J45.909 Unspecified asthma, uncomplicated; Z87.891 Personal history of nicotine dependence
CPT/HCPCS: 96372; 99283; J1885

== ENCOUNTER 2019-10-02 09:46 | Emergency (ER) | payer SELFPAY ==
[2019-10-02] MEDS ORDERED: diphenhydrAMINE 50 MG/ML VIAL ONE ×2 (10:24→11:48)
[2019-10-02] MEDS ORDERED: Promethazine HCl 25 MG/ML VIAL ONE ×2 (10:24→11:48)
[2019-10-02] MEDS ORDERED: Lactated Ringer's 1,000 ML ONE (10:24)
[2019-10-02 10:58] LABS: Anion Gap 14 mmol/L (10-20); BUN (Urea Nitrogen) 8 mg/dL (7.0-18.7); Calc. Creatinine Clearance 0 mL/min (70-130); Carbon Dioxide 22 mmol/L (22-29); Chloride 108 mmol/L (98-107); Estimated GFR-MDRD Greater than 90; Glucose 84 mg/dL (70-105); Potassium 3.8 mmol/L (3.5-5.1); Sodium 140 mmol/L (136-145)
[2019-10-02] MEDS ORDERED: Ketorolac Tromethamine 30 MG/ML VIAL ONE (12:57)
[2019-10-02] MEDS ORDERED: Ondansetron PF 4 MG/2 ML Vial ONE (13:07)
--- NOTE | 2019-10-02 13:37 | CT ---
CT Brain WO Con History: Headache Comparison: None. Findings: No acute hemorrhage or infarct. No midline shift or mass effect. Ventricular size and extra -axial CSF spaces are normal. Paranasal sinuses and mastoids are clear. Impression: No acute intracranial abnormality.
== END 2019-10-02 14:59 | disposition home or self-care (01) ==
LOC: NAV ERS 09:46
DX: R11.2 Nausea with vomiting, unspecified (principal); R51 Headache; T39.1X5A Adverse effect of 4-Aminophenol derivatives, initial encounter; J45.909 Unspecified asthma, uncomplicated; F17.210 Nicotine dependence, cigarettes, uncomplicated; Z79.899 Other long term (current) drug therapy
CPT/HCPCS: 70450; 80048; 96365; 96367; 96368; 96375; 96376; J1200; J1885; J2405; J2550; J7120

== ENCOUNTER 2020-02-05 14:06 | Emergency (ER) | payer SELFPAY | END 2020-02-05 14:34 | disposition home or self-care (01) | LOC: NAV ERS 14:06 | DX: J06.9 Acute upper respiratory infection, unspecified (principal); J45.909 Unspecified asthma, uncomplicated; F17.210 Nicotine dependence, cigarettes, uncomplicated | CPT/HCPCS: 99283 ==

== ENCOUNTER 2020-03-05 12:35 | Emergency (ER) | payer OTHER | END 2020-03-05 13:05 | disposition home or self-care (01) | LOC: NAV ERS 12:35 | DX: J02.9 Acute pharyngitis, unspecified (principal); J45.909 Unspecified asthma, uncomplicated; F17.210 Nicotine dependence, cigarettes, uncomplicated | CPT/HCPCS: 99283 ==

== ENCOUNTER 2020-06-01 12:44 | Emergency (ER) | payer OTHER ==
[2020-06-03 11:58] LABS: SARS-CoV-2 MS2 Positive; SARS-CoV-2 N Gene Negative; SARS-CoV-2 S Gene Negative; SARS-CoV-2 orf1ab Negative
== END 2020-06-01 13:21 | disposition home or self-care (01) ==
LOC: NAV ERS 12:44
DX: Z20.828 Contact with and (suspected) exposure to other viral communicable diseases (principal); J45.909 Unspecified asthma, uncomplicated; Z87.891 Personal history of nicotine dependence
CPT/HCPCS: 87635; 99283; U0003

== ENCOUNTER 2020-11-11 10:36 | Emergency (ER) | payer OTHER, MEDICAID ==
[2020-11-12 18:35] LABS: SARS-CoV-2 MS2 Positive; SARS-CoV-2 N Gene Positive; SARS-CoV-2 S Gene Positive; SARS-CoV-2 by NAA DETECTED (NotDetected); SARS-CoV-2 orf1ab Positive
== END 2020-11-11 12:18 | disposition home or self-care (01) ==
LOC: NAV ERS 10:36
DX: O98.513 Other viral diseases complicating pregnancy, third trimester (principal); U07.1 COVID-19; O99.513 Diseases of the respiratory system complicating pregnancy, third trimester; J45.909 Unspecified asthma, uncomplicated; Z87.891 Personal history of nicotine dependence; Z3A.35 35 weeks gestation of pregnancy
CPT/HCPCS: 87635; 99283; U0003

== ENCOUNTER 2021-09-01 02:37 | Emergency (ER) | payer OTHER, SELFPAY ==
[2021-09-01 17:21] LABS: SARS-CoV-2 PCR by NAA Not Detected (NotDetected)
== END 2021-09-01 03:28 | disposition home or self-care (01) ==
LOC: NAV ERS 02:37
DX: J06.9 Acute upper respiratory infection, unspecified (principal); Z20.822 Contact with and (suspected) exposure to COVID-19; F17.200 Nicotine dependence, unspecified, uncomplicated; Z79.899 Other long term (current) drug therapy
CPT/HCPCS: 99283; U0003; U0005

== ENCOUNTER 2021-11-04 12:09 | Emergency (ER) | payer OTHER ==
[2021-11-04 12:33] LABS: Bilirubin Negative (Negative); Blood, Urine Large (Negative); Glucose, Urine (Dipstick) Negative (Negative); Ketone, Urine Negative (Negative); Leukocyte Trace (Negative); Nitrite Negative (Negative); Protein, Urine (Dipstick) 30 mg/dL (Neg-Trace); Urobilinogen 0.2 mg/dL (Less than 2); pH, Urine 6.5 (5.0-9.0)
[2021-11-04 12:48] LABS: Bacteria/HPF 2+ HPF (None Seen); Clarity Hazy (Clear); RBC/HPF 0-3 HPF (0-3); Specific Gravity, Urine 1.024 (1.005-1.030)
[2021-11-04 12:54] LABS: Pregnancy Test - Urine (BHCG) Negative (Negative); Pregu Control Background? CLEAR/WHITE (CLR/WHITE); Pregu Control Bar Appear? YES (CONTROL BAR); Specific Gravity 1.024 (1.002-1.036)
== END 2021-11-04 13:05 | disposition home or self-care (01) ==
LOC: NAV ERS 12:09
DX: N93.9 Abnormal uterine and vaginal bleeding, unspecified (principal); F17.210 Nicotine dependence, cigarettes, uncomplicated; J45.909 Unspecified asthma, uncomplicated
CPT/HCPCS: 81003; 81015; 81025; 99284

== ENCOUNTER 2021-12-04 12:56 | Emergency (ER) | payer OTHER ==
[2021-12-04] MEDS ORDERED: Sodium Chloride 0.9% 1,000 ML ONE (13:43)
[2021-12-04 13:47] LABS: #Basophils 0.1 thou/uL (0.0-0.2); #Eosinphils 0.2 thou/uL (0.0-0.7); #Lymphocytes 2.9 thou/uL (1.20-3.40); #Monocytes 0.6 thou/uL (0.11-0.59); #Neutrophils 4.1 thou/uL (1.40-6.50); %Basophils 1.7 % (0.0-1.0); %Eosinophils 2.5 % (0.0-10.0); %Lymphocytes 36.6 % (21.0-51.0); %Monocytes 7.4 % (0.0-10.0); %Neutrophils 51.8 % (42.0-75.0); Mean Corpuscular HGB CONC 31.2 g/dL (32.0-36.0); Mean Corpuscular Volume 86.4 fL (78.0-98.0); Mean Platelet Volume 6.3 fL (7.4-10.4); Platelet Count 337 thou/uL (130-400); RBC Distribution Width 12.5 % (11.5-14.5); White Blood Cell (WBC) Count 7.8 thou/uL (4.8-10.8)
[2021-12-04 13:56] LABS: Anion Gap 15 mmol/L (10-20); BUN (Urea Nitrogen) 9 mg/dL (7.0-18.7); Calc. Creatinine Clearance 0 mL/min (70-130); Calcium 8.1 mg/dL (7.8-10.44); Carbon Dioxide 20 mmol/L (22-29); Chloride 107 mmol/L (98-107); Glucose 95 mg/dL (70-105); Potassium 3.9 mmol/L (3.5-5.1); Sodium 138 mmol/L (136-145)
[2021-12-04 14:03] LABS: Bilirubin Negative (Negative); Blood, Urine Negative (Negative); Glucose, Urine (Dipstick) Negative (Negative); Ketone, Urine Negative (Negative); Leukocyte Trace (Negative); Nitrite Negative (Negative); Protein, Urine (Dipstick) Negative (Neg-Trace); Specific Gravity, Urine 1.015 (1.005-1.030); Urobilinogen 0.2 mg/dL (Less than 2)
[2021-12-04 14:07] LABS: Bacteria/HPF 1+ HPF (None Seen); Clarity SL HAZY (Clear)
== END 2021-12-04 15:20 | disposition home or self-care (01) ==
LOC: NAV ERS 12:56
DX: O03.4 Incomplete spontaneous abortion without complication (principal); O99.519 Diseases of the respiratory system complicating pregnancy, unspecified trimester; J45.909 Unspecified asthma, uncomplicated; O99.330 Smoking (tobacco) complicating pregnancy, unspecified trimester; F17.210 Nicotine dependence, cigarettes, uncomplicated
CPT/HCPCS: 80048; 81003; 81015; 84702; 85025; 86900; 86901; 99284; J7050

== ENCOUNTER 2022-01-31 09:01 | Emergency (ER) | payer OTHER | END 2022-01-31 09:33 | disposition home or self-care (01) | LOC: NAV ERS 09:01 | DX: H10.9 Unspecified conjunctivitis (principal); J06.9 Acute upper respiratory infection, unspecified; J45.909 Unspecified asthma, uncomplicated; F17.210 Nicotine dependence, cigarettes, uncomplicated; F17.290 Nicotine dependence, other tobacco product, uncomplicated | CPT/HCPCS: 99283 ==

== ENCOUNTER 2022-02-10 18:35 | Emergency (ER) | payer OTHER ==
[2022-02-11 18:08] LABS: SARS-CoV-2 PCR by NAA Not Detected (NotDetected)
== END 2022-02-10 19:31 | disposition home or self-care (01) ==
LOC: NAV ERS 18:35
DX: J20.9 Acute bronchitis, unspecified (principal); F17.210 Nicotine dependence, cigarettes, uncomplicated; Z20.822 Contact with and (suspected) exposure to COVID-19
CPT/HCPCS: 99283; U0003; U0005

== ENCOUNTER 2022-05-25 13:23 | Emergency (ER) | payer OTHER ==
[2022-05-25 14:28] LABS: Clarity Cloudy (Clear); Specific Gravity, Urine 1.023 (1.002-1.036)
[2022-05-25 14:31] LABS: Bacteria/HPF Rare-Few HPF (None Seen); Pregnancy Test - Urine (BHCG) Negative (Negative); Pregu Control Background? CLEAR/WHITE (CLR/WHITE); Pregu Control Bar Appear? YES (CONTROL BAR); RBC/HPF 21-50 HPF (0-3); Specific Gravity 1.023 (1.002-1.036); WBC/HPF Greater Than 50 HPF (0-3)
== END 2022-05-25 14:50 | disposition home or self-care (01) ==
LOC: NAV ERS 13:23
DX: N39.0 Urinary tract infection, site not specified (principal); J45.909 Unspecified asthma, uncomplicated; F17.290 Nicotine dependence, other tobacco product, uncomplicated
CPT/HCPCS: 81003; 81015; 81025; 99283

== ENCOUNTER 2022-12-04 06:58 | Emergency (ER) | payer OTHER | END 2022-12-04 07:29 | disposition home or self-care (01) | LOC: NAV ERS 06:58 | DX: J02.9 Acute pharyngitis, unspecified (principal); F17.290 Nicotine dependence, other tobacco product, uncomplicated | CPT/HCPCS: 99282 ==

== ENCOUNTER 2022-12-06 10:30 | Emergency (ER) | payer OTHER | END 2022-12-06 11:45 | disposition home or self-care (01) | LOC: NAV ERS 10:30 | DX: J02.9 Acute pharyngitis, unspecified (principal); F17.290 Nicotine dependence, other tobacco product, uncomplicated | CPT/HCPCS: 87081; 87430; 99283 ==

== ENCOUNTER 2023-01-20 17:54 | Emergency (ER) | payer OTHER ==
[2023-01-20] MEDS ORDERED: Ibuprofen 200 MG TAB ONE (18:22)
[2023-01-21 11:29] LABS: MONO NEGATIVE CONTROL ZONE White (Negative) (White); MONO POSITIVE CONTROL Pink Line (Positive) (PINK/RED); Mononucleosis NEGATIVE (NEGATIVE)
== END 2023-01-20 20:44 | disposition home or self-care (01) ==
LOC: NAV ERS 17:54
DX: J02.9 Acute pharyngitis, unspecified (principal); F17.290 Nicotine dependence, other tobacco product, uncomplicated
CPT/HCPCS: 36415; 86308; 87081; 87430; 87804; 99283

== ENCOUNTER 2023-09-17 21:46 | Emergency (ER) | payer OTHER | END 2023-09-17 22:34 | disposition home or self-care (01) | LOC: NAV ERS 21:46 | DX: R42 Dizziness and giddiness (principal); R06.00 Dyspnea, unspecified; F17.290 Nicotine dependence, other tobacco product, uncomplicated | CPT/HCPCS: 93005 ==

== ENCOUNTER 2024-08-30 17:50 | Emergency (ER) | payer OTHER, SELFPAY ==
[2024-08-30 18:31] LABS: Bilirubin Negative (Negative); Blood, Urine Negative (Negative); Clarity Clear (Clear); Glucose, Urine (Dipstick) Negative (Negative); Ketone, Urine Trace mg/dL (Negative); Leukocyte Negative (Negative); Nitrite Negative (Negative); Protein, Urine (Dipstick) Negative (Neg-Trace); Specific Gravity, Urine 1.025 (1.005-1.030); pH, Urine 6.5 (5.0-9.0)
[2024-08-30 18:33] LABS: Pregnancy Test - Urine (BHCG) POSITIVE (Negative); Pregu Control Background? CLEAR/WHITE (CLR/WHITE); Pregu Control Bar Appear? YES (CONTROL BAR); Specific Gravity 1.025 (1.002-1.036)
[2024-08-30 19:20] LABS: CAUTI Indications for Culture Pelvic or flank pain; RBC/HPF 0-3 HPF (0-3); Transitional Epithelial 0-3 HPF (None Seen)
[2024-08-30 19:21] LABS: Bacteria/HPF 2+ HPF (None Seen)
[2024-08-30 19:22] LABS: Urine Culture Reflex No No
== END 2024-08-30 18:55 | disposition home or self-care (01) ==
LOC: NAV ERS 17:50
DX: O99.891 Other specified diseases and conditions complicating pregnancy (principal); M54.50 Low back pain, unspecified; O99.331 Smoking (tobacco) complicating pregnancy, first trimester; F17.290 Nicotine dependence, other tobacco product, uncomplicated; Z3A.01 Less than 8 weeks gestation of pregnancy
CPT/HCPCS: 81001; 81025; 99283